=== PATIENT | male | born 1995 | race Hispanic/Latino ===

== ENCOUNTER 2018-01-23 10:44 | Emergency (ER) | payer OTHER ==
[~2018-01-23] VITALS: Ht 180.3 cm; Wt 60.8 kg
--- NOTE | 2018-01-23 11:38 | ED HEADACHE COMPLAINT ---
History of Present Illness General Chief Complaint: Headache Stated Complaint: [place] Source: patient Exam Limitations: language barrier Vital Signs & Intake/Output Vital Signs & Intake/Output Vital Signs Date Time Temp Pulse Resp B/P B/P Pulse O2 O2 Flow FiO2 Mean Ox Delivery Rate 01/23 1358 98.1 66 18 128/72 98 Room Air 01/23 1140 98.4 01/23 1102 98.4 64 16 145/79 99 Room Air Allergies Coded Allergies: No Known Allergies (01/23/18) Reconcile Medications Butalb/Acetaminophen/Caffeine (Wsatrw-Yfhxtubb-Imrv 50-325-40) 50 MG-325 MG-40 MG TABLET 1-2 TAB PO Q6P PRN headache Ibuprofen 800 MG TABLET 1 TAB PO TID headache Triage Note: REPORTS SEVERE HEADACHES, DIZZINES WITH NAUSEA AND VOMITING THAT STARTED YESTERDAY. ATTEMPTED TAKING MEDS PO HOWEVER HE VOMITED THEM. NO HISTORY OF MIGRAINES OR THE SAME SYMPTOMS IN THE PAST. Triage Nurses Notes Reviewed? yes Onset: Gradual Duration: day(s): (1), constant, continues in ED Timing: recent history Quality/Severity: moderate, severe No Modifying Factors: none HPI: 22-year-old male comes into the emergency room for further evaluation of headache has been going on since 3 PM yesterday. Headache was gradual and got progressively worse over the last 9 hours from yesterday. He denies any vomiting but has some associated nausea. Some associated light sensitivity. Headache is located behind his eyes bilaterally. He has a history of intermittent headaches but denies ever having a headache this severe in nature. Headache was not sudden onset thunderclap. Denies any trauma. Denies any other associated symptoms. Comes in for further evaluation. Denies any fever or neck pain. (Raghu Ge) Past History Travel History Traveled to [place] past 21 day No Medical History Any Pertinent Medical History? none Surgical History Surgical History: none, unobtainable Psychosocial History What is your primary language Kazakh Tobacco Use: Quit >30 days ago Family History Hx Contributory? No (Raghu Ge) Review of Systems Review of Systems Constitutional: Reports: no symptoms. Eyes: Reports: see HPI. Ears, Nose, Throat, Mouth: Reports: no symptoms. Respiratory: Reports: no symptoms. Cardiovascular: Reports: no symptoms. Gastrointestinal/Abdominal: Reports: see HPI. Genitourinary: Reports: no symptoms. Musculoskeletal: Reports: no symptoms. Skin: Reports: no symptoms. Neurological/Psychological: Reports: see HPI. Hematologic/Endocrine: Reports: no symptoms. Endocrine: Reports: no symptoms. Immunologic/Allergic: Reports: no symptoms. All Other Systems: Reviewed and Negative (Raghu Ge) Physical Exam Physical Exam General Appearance: well developed/nourished, alert, awake, mild distress Head: atraumatic, normal appearance Eyes: Bilateral: normal appearance, PERRL, EOMI. Ears, Nose, Throat: normal ENT inspection, hearing grossly normal Neck: normal inspection Respiratory: normal breath sounds, no respiratory distress Cardiovascular: regular rate/rhythm Gastrointestinal: soft Extremities: normal inspection Psychiatric: awake, alert, oriented x 3 Cranial Nerves: normal hearing, normal speech, PERRL Coordination/Gait: normal finger to nose Motor/Sensory: no motor/sensory deficits Skin: intact, normal color Core Measures Sepsis Present: No Sepsis Focused Exam Completed? No (Raghu Ge) Progress Differential Diagnosis: carotid dissection, cav sinus thromb, cluster [place], encephalitis, IC mass/tumor, intracranial Hem., meningitis, migraine [place], musculoskeletal pain, sinusitis, SSS thrombosis, subarach. Hem., tension [place], temporal arteritis, TMJ syndrome, viral cephalgia Plan of Care: Orders Procedure Date/time Status COMPREHENSIVE METABOLIC PANEL 01/23 1126 Complete CBC WITHOUT DIFFERENTIAL 01/23 1126 Complete Laboratory Tests 01/23/18 1145: Anion Gap 16, Estimated GFR > 60, BUN/Creatinine Ratio 13.8, Glucose 114 H, Calcium 10.4 H, Total Bilirubin 0.8, AST 18, ALT 27, Alkaline Phosphatase 45, Total Protein 8.1, Albumin 5.2 H, Globulin 2.9, Albumin/Globulin Ratio 1.8, CBC w Diff NO MAN DIFF REQ, RBC 5.01, MCV 94.4 H, MCH 31.8 H, MCHC 33.7, RDW 12.7, MPV 8.2, Gran % 81.3 H, Lymphocytes % 12.3 L, Monocytes % 6.1, Eosinophils % 0.1, Basophils % 0.2, Absolute Granulocytes 9.1 H, Absolute Lymphocytes 1.4, Absolute Monocytes 0.7 H, Absolute Eosinophils 0, Absolute Basophils 0 Diagnostic Imaging: Viewed by Me: CT Scan. Discussed w/RAD: CT Scan. Radiology Impression: PATIENT: ROSALBA WOOD PRESENT AGE: 22 PATIENT ACCOUNT NO: [id number] : 94 LOCATION: [facility] ORDERING PHYSICIAN: Raghu GUEVARA SERVICE DATE: 01/23/18 EXAM TYPE: CAT - CT HEAD WO IV CONTRAST EXAMINATION: CT HEAD WITHOUT CONTRAST CLINICAL INFORMATION: Headache. COMPARISON: None. TECHNIQUE: Contiguous axial imaging was performed from the skull base to vertex without intravenous administration of contrast. DLP: 618.94 mGy-cm FINDINGS: There is no evidence of acute intracranial hemorrhage or territorial infarction. No abnormal mass effect or midline shift is seen. Spann to white matter differentiation is well preserved. No extra-axial fluid collections are identified. The ventricles are normal in size. There is no abnormal attenuation within the brain parenchyma. The osseous structures and soft tissues are normal. The mastoid air cells and visualized portions of the paranasal sinuses are well aerated. IMPRESSION: No acute intracranial pathology. DICTATED BY: Clay Cm MD DATE/TIME DICTATED:1205 PLOW SHAKER:LUCIEN DATE/TIME TRANSCRIBED:01/23/181205 CONFIDENTIAL, DO NOT COPY WITHOUT APPROPRIATE AUTHORIZATION. <Electronically signed in Other Vendor System> SIGNED BY: Clay Cm MD 01/23/18 1211 Comments: 01/23/2018 2:10:56 PM Patient clinically looks well. His headache is significantly improved. No acute findings on CT scan. Most consistent with migraine headache. No suspicion for subarachnoid hemorrhage at this time. Headache was not sudden onset. No nuchal rigidity. Full range of motion of neck. No suspicion for meningitis. Follow-up with PCP. Return if any other concerns. Neurologically intact. Headache almost completely gone at discharge. (Edmond GUEVARA,Raghu) Departure Departure Disposition: HOME OR SELF CARE Condition: Stable Clinical Impression Primary Impression: Headache Referrals: Patient Has No Primary Care Dr (PCP/Family) Additional Instructions: Take ibuprofen and Fioricet as prescribed. Follow-up with your primary care doctor. Return if any concerns worsening symptoms. Please go over all results of today's visit with your primary care doctor. Contact your primary care doctor to let them know you were here in the emergency room. There may be nonspecific findings which may not be related to your visit today here in the emergency room but may require further evaluation and chronic monitoring by your primary care doctor. If you had a laceration today the chance of foreign body always remains. You should follow-up with your primary care doctor for recheck in 3-5 days for a wound check. If you had an x-ray done there is a chance that a fracture could have been missed on initial read and you should follow-up with your primary care doctor for repeat x-rays if symptoms persist. If your blood pressure was elevated here in the emergency room please have rechecked by [facility] primary care doctor within the next 48. If you were prescribed a narcotic here in the emergency room or any type of controlled substances you're not allowed to drive while taking this medication or operate any type of heavy machinery. Narcotics can make you feel lightheaded dizziness nausea and can cause constipation. You may need to metal pickling equipment operator a stool softener. Thank you for choosing [facility] emergency room. Please return to the emergency room immediately if you have any other concerns worsening of symptoms. Departure Forms: Customer Survey General Discharge Information Prescriptions: Current Visit Scripts Ibuprofen 1 TAB PO TID #30 TAB Butalb/Acetaminophen/Caffeine (Ejclev-Cbkmcbne-Ceri 50-325-40) 1-2 TAB PO Q6P PRN headache #20 TAB (Raghu Ge) PA/PHARMACY INNOVATION ASSISTANT Co-Sign Statement Statement: ED Attending supervision documentation- I saw and evaluated the patient. I have also reviewed all the pertinent lab results and diagnostic results. I agree with the findings and the plan of care as documented in the PA's/PHARMACY INNOVATION ASSISTANT's documentation. x I have reviewed the ED Record and agree with the PA's/PHARMACY INNOVATION ASSISTANT's documentation. [] Additions or exceptions (if any) to the PAs/PHARMACY INNOVATION ASSISTANT's note and plan are summarized below: [] (Dagoberto SPARKS,Joe)
[2018-01-23 11:53] LABS: ABSOLUTE BASOPHIL COUNT 0 /CUMM (0.0-0.2); ABSOLUTE EOSINOPHIL COUNT 0 /CUMM (0.0-0.7); ABSOLUTE GRANULOCYTE CT 9.1 /CUMM (1.4-6.5); ABSOLUTE LYMPH COUNT 1.4 /CUMM (1.2-3.4); ABSOLUTE MONOCYTE COUNT 0.7 /CUMM (0.10-0.60); BASOPHIL % 0.2 % (0.0-2.0); EOSINOPHIL % 0.1 % (0-5); GRANULOCYTE % 81.3 % (42.2-75.2); HEMATOCRIT 47.2 % (42-52); MEAN CORPUSCULAR HGB 31.8 PG (27.0-31.0); MEAN CORPUSCULAR HGB CONC 33.7 G/DL (33.0-37.0); MEAN CORPUSCULAR VOLUME 94.4 FL (80.0-94.0); MEAN PLATELET VOLUME 8.2 FL (7.4-10.4); PLATELET COUNT 253 /CUMM (130-400); RBC DISTRIBUTION WIDTH 12.7 % (11.5-14.5); RED BLOOD CELL CT 5.01 /CUMM (4.70-6.10); WHITE BLOOD CELL COUNT 11.2 /CUMM (4.8-10.8)
--- NOTE | 2018-01-23 12:11 | CT SCAN REPORT ---
EXAMINATION: CT HEAD WITHOUT CONTRAST CLINICAL INFORMATION: Headache. COMPARISON: None. TECHNIQUE: Contiguous axial imaging was performed from the skull base to vertex without intravenous administration of contrast. DLP: 618.94 mGy-cm FINDINGS: There is no evidence of acute intracranial hemorrhage or territorial infarction. No abnormal mass effect or midline shift is seen. Spann to white matter differentiation is well preserved. No extra-axial fluid collections are identified. The ventricles are normal in size. There is no abnormal attenuation within the brain parenchyma. The osseous structures and soft tissues are normal. The mastoid air cells and visualized portions of the paranasal sinuses are well aerated. IMPRESSION: No acute intracranial pathology.
[2018-01-23] MEDS ORDERED: BUTALB-ACETAMI1 EACH PO (13:43)
[2018-01-23] MEDS ORDERED: IBUPROFEN800 M1 PO (13:43)
[2018-01-23 13:58] VITALS: BP 128/72
== END 2018-01-23 13:59 ==
LOC: ERH 10:44
PROVIDERS: Physician Assistant Medical
DX: R51 Headache (principal)
CPT/HCPCS: 96374; 96375; J0131; J1885; J2405; J2765

== ENCOUNTER 2018-03-07 20:56 | Emergency (ER) | payer OTHER ==
[~2018-03-07] VITALS: Ht 180.3 cm; Wt 63.5 kg
[~2018-03-07 20:56] MED LIST: BACLOFEN10 M1 PO; BUTALB-ACETAMI1 EACH PO; IBUPROFEN800 M1 PO; LIDODERM1 EACH TOP; ULTRAM50 M1 PO
[2018-03-07 21:07] VITALS: BP 128/75
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
== END 2018-03-07 22:00 | disposition admitted as inpatient to this hospital (09) ==
LOC: ERH 20:56
DX: M54.5 Low back pain (principal)